=== PATIENT | male | born 1945 | race Caucasian/White ===

== ENCOUNTER 2016-10-28 23:51 | Outpatient (CLI) | payer MEDICARE, OTHER | END 2016-10-28 23:52 | disposition critical access hospital (66) | LOC: EMS 23:51 | PROVIDERS: ATTEND Surgery | DX: R20.0 Anesthesia of skin (principal) | CPT/HCPCS: A0425; A0429 ==

== ENCOUNTER 2016-10-29 00:06 | Emergency (ER) | payer MEDICARE, OTHER ==
[2016-10-29 00:33] LABS: BASOPHILS % (AUTO) 0.3 %; EOSINOPHILS # (AUTO) 0.1 10^3/uL (0.0-0.7); EOSINOPHILS % (AUTO) 2.5 %; HCT - HEMATOCRIT 40.5 % (42.0-52.0); HGB - HEMOGLOBIN 14.1 g/dL (14.0-18.0); LYMPHOCYTES # (AUTO) 2.1 10^3/uL (1.5-3.5); LYMPHOCYTES % (AUTO) 34.4 %; MEAN CORPUSCULAR HEMOGLOBIN 29.9 pg (27.0-31.0); MEAN CORPUSCULAR HGB CONC 34.9 g/dL (32.0-36.0); MEAN CORPUSCULAR VOLUME 85.5 fL (80.0-94.0); MEAN PLATELET VOLUME 8.4 fL (7.4-11.4); MONOCYTES # (AUTO) 0.8 10^3/uL (0.0-1.0); MONOCYTES % (AUTO) 13.7 %; NEUTROPHILS % (AUTO) 49.1 %; RED BLOOD COUNT 4.74 10^6/uL (4.70-6.10); RED CELL DISTRIBUTION WIDTH 14.1 % (12.0-15.0)
[2016-10-29 01:11] LABS: INR 1.1 (0.8-1.2)
[2016-10-29 01:17] LABS: ALBUMIN/GLOBULIN RATIO 1.4 (1.0-2.2); BILIRUBIN,TOTAL 0.8 mg/dL (0.2-1.0); CALCIUM 8.7 mg/dL (8.5-10.3); CREATININE 1.2 mg/dL (0.6-1.2); POTASSIUM 3.7 mmol/L (3.5-5.0)
[2016-10-29 01:18] LABS: PARTIAL THROMBOPLASTIN TIME 31.1 secs (24.9-33.3)
--- NOTE | 2016-10-29 01:28 | CT Preliminary Report ---
Exam: CT Head W/O IMPRESSION: 1. Expected evolution of the left temporoparietal infarct compared to recent exams. 2. No hemorrhagic transformation of the infarct. 3. No evidence of new interval infarct. [facility] SITE ID: [id number]
--- NOTE | 2016-10-29 01:30 | CT Report ---
EXAM: CT HEAD EXAM DATE: 10/29/2016 12:56 AM. CLINICAL HISTORY: Right facial numbness. COMPARISON: Brain CT and CT angiogram of the head and neck from 10/26/2016 and brain MRI from 017. TECHNIQUE: Multiaxial CT images were obtained from the foramen magnum to the vertex. IV contrast: Non e. Reformats: Coronal. In accordance with CT protocol optimization, one or more of the following dose reduction techniques w ere utilized for this exam: automated exposure control, adjustment of mA and/or KV based on patient s ize, or use of iterative reconstructive technique. FINDINGS: Parenchyma: There is more conspicuous decreased hoffmann-white matter differentiation involving the left temporoparietal region, consistent with evolving posterior left MCA territory infarct. No new acute l oss of hoffmann-white matter differentiation is seen. No hemorrhagic transformation of the infarct is miguel ntified. Extraaxial Spaces: Normal for age. No subdural or epidural collections identified. Ventricles: The ventricles and cortical sulci are moderately enlarged, consistent with age-related ti ssue loss. Sinuses: Imaged paranasal sinuses, orbits, and mastoids show no significant abnormality. Bones: No evidence of fracture or calvarial defect. Other: Mild patchy chronic microangiopathic white matter changes are suggested. Mild intracranial ath erosclerosis is noted. IMPRESSION: 1. Expected evolution of the left temporoparietal infarct compared to recent exams. 2. No hemorrhagic transformation of the infarct. 3. No evidence of new interval infarct. [facility] Referring Provider Line: [phone] SITE ID: [id number]
[2016-10-29] MEDS ORDERED: DICYCLOMINE 10 MG CAPSULE PO STA (01:39)
--- NOTE | 2016-10-29 01:40 | ED Physician Documentation ---
PD HPI FOCAL NEURO - Stated complaint Stated Complaint: Mouth & Foot Numbness - Chief complaint Chief Complaint: Neuro - History obtained from History obtained from: Patient, Family - History of Present Illness Timing - onset: How many hours ago (4), Today Timing - details: Gradual onset, Still present Severity of deficit: Mild Numbness: Face Associated symptoms: No: Headache, Nausea / vomiting, Seizure, Syncope, Fall Contributing factors: positive: Anticoagulated. negative: Atrial fibrillation Baseline status: positive: A&OX3, ambulatory, indep Similar symptoms before: Work up / diagnostics, Treatment Recently seen: Emergency Dept - Additional information Additional information: Patient is a 71 year old male who had a stroke three days prior who is presenting to the emergency department for right sided lip and tongue numbness that started at rest about 4 hours ago. Review of Systems Constitutional: denies: Fever, Chills Eyes: denies: Loss of vision, Decreased vision Ears: denies: Ear pain Nose: denies: Rhinorrhea / runny nose, Congestion Respiratory: denies: Cough GI: denies: Abdominal Pain, Nausea, Vomiting Skin: denies: Rash, Lesions Musculoskeletal: denies: Neck pain, Back pain, Extremity pain Neurologic: reports: Numbness. denies: Generalized weakness, Focal weakness, Syncope, Altered mental status Psychiatric: denies: Depressed Immunocompromised: denies: Immunocompromised PD PAST MEDICAL HISTORY - Past Medical History Past Medical History: Yes Cardiovascular: Hypertension, High cholesterol Neuro: CVA - Past Surgical History Past Surgical History: Yes - Present Medications Home Medications: Ambulatory Orders Medication Instructions Recorded Confirmed Cephalexin [Keflex] 500 mg PO Q6H 7 Days 02/16/15 Lisinopril [Prinivil] 5 mg PO DAILY 02/16/15 02/16/15 Pravastatin Sodium 40 mg PO DAILY 02/16/15 02/16/15 Sulfamethoxazole/Trimethoprim 1 each PO BID #10 tablet 02/18/15 [Bactrim Ds Tablet] - Allergies Allergies/Adverse Reactions: Allergies Allergy/AdvReac Type Severity Reaction Status Date / Time duloxetine HCl * Allergy Unknown Verified 02/16/15 17:57 [From Cymbalta] - Social History Does the pt smoke?: No Smoking Status: Never smoker Does the pt drink ETOH?: No Does the pt have substance abuse?: No - Immunizations Immunizations are current?: No Immunizations: TDAP >10years/unknown - POLST Patient has POLST: No PD ED PE NORMAL - Vitals Vital signs reviewed: Yes - General General: Alert and oriented X 3, No acute distress - HEENT HEENT: Atraumatic, PERRL - Neck Neck: Supple, no meningeal sign, No JVD - Cardiac Cardiac: RRR, No murmur - Respiratory Respiratory: No respiratory distress, Clear bilaterally - Abdomen Abdomen: Soft, Non tender, Non distended - Derm Derm: Normal color, Warm and dry - Extremities Extremities: No deformity, No tenderness to palpate, No edema - Neuro Neuro: Alert and oriented X 3, No motor deficit, Normal speech - Psych Psych: Normal mood, Normal affect PD ED PE EXPANDED - Neuro Neuro: Alert and Oriented X 3, Normal motor, Normal Speech, Abnormal sensation ( decreased sensation right side of face), PERRL. No: Dyscongugate gaze, Aphasia , Dysarthria NIHSS - Level of Consciousness Level of consciousness: (0) Alert, Keenly responsive LOC Questions: (0) Answers both Q's correct - Gaze Best Gaze: (0) Normal - Visual Visual: (0) No loss - Facial Palsy Facial Palsy: (0) Normal, symmetrical movement - Motor Arms (both separate) Motor Arm (right): (0) No drift Motor Arm (left): (0) No drift - Motor Legs (both separate) Motor Leg (right): (0) No drift Motor Leg (left): (0) No drift - Limb Ataxia Limb Ataxia: (0) Absent - Sensory Sensory: (1) Kpai-xy-prectdep loss - Best Language Best Language: (0) No aphasia - Dysarthria Dysarthria: (0) Normal - Extinction and Inattention (formally neg Extinction and inattention: (0) No abnormality Results - Vitals Vitals: Vital Signs - 24 hr 10/29/16 10/29/16 10/29/16 00:08 01:09 01:45 Temperature 36.7 C Heart Rate 60 63 69 Respiratory 16 16 16 Rate Blood Pressure 207/91 H 184/90 H 155/88 H O2 Saturation 100 97 100 Oxygen O2 Source Room air - EKG (time done) 0103 Rate: Rate (enter#) (55) Rhythm: NSR [place]: LAD Intervals: Normal [place] QRS: Normal Ischemia: Normal ST segments, Q waves Other comments: Other comments (occasional pac) Compare to prior EKG: Old EKG unavailable - Labs Labs: Laboratory Tests 10/29/16 10/29/16 10/29/16 00:22 01:00 01:00 WBC 6.0 RBC 4.74 Hgb 14.1 Hct 40.5 L MCV 85.5 MCH 29.9 MCHC 34.9 RDW 14.1 Plt Count 183 MPV 8.4 Neut # 3.0 Lymph # 2.1 [place] # 0.8 Eos # 0.1 Baso # 0.0 Absolute Nucleated RBC 0.00 Nucleated RBCs 0.0 PT 13.0 H INR 1.1 APTT 31.1 Sodium 137 Potassium 3.7 Chloride 103 Carbon Dioxide 25 Anion Gap 9.0 BUN 20 Creatinine 1.2 Estimated GFR (MDRD) 59 L Glucose 91 Calcium 8.7 Total Bilirubin 0.8 AST 20 ALT 15 Alkaline Phosphatase 74 Total Protein 7.0 Albumin 4.1 Globulin 2.9 Albumin/Globulin Ratio 1.4 Lipase 25 - Rads (name of study) ct head Radiology: Final report received (involutional changes of prior stroke, no acute bleed) PD MEDICAL DECISION MAKING - ED course Complexity details: reviewed old records, reviewed results, re-evaluated patient , considered differential, d/w patient, d/w family ED course: Patient was seen and examined at bedside. patient had minimal deficit and was not a candidate for tpa due to the previous stroke three days prior and the low nihss. Patient was sent for imaging. when patient returned labs were drawn and ekg was performed. Patient showed no acute, unexpected changes. Patient was already on the appropriate therapy. Patient required no further work up at this time and had a follow up appointment tomorrow. Patient was stable for discharge with outpatient follow up. Departure - Departure Disposition: Home, Self Care Clinical Impression: Cerebrovascular accident (CVA) Condition: Good Instructions: ED Stroke Completed Follow-Up: Roly Dickson MD [Primary Care Provider] - Tomorrow Comments: Your symptoms are likely secondary to your stroke. A relatively large area of the left side of your brain was affected so it is not uncommon to have residual symptoms or repeat strokes. You are already on the appropriate therapy. You should follow up with your doctor tomorrow. You may return to the emergency department at any time for new, worsening or uncontrollable symptoms. Discharge Date/Time: 10/29/16 01:45
[2016-10-29 02:05] VITALS: BP 155/88
== END 2016-10-29 01:45 | disposition home or self-care (01) ==
LOC: EDUNIT# → ED 00:06 → SUPCPDRO 00:06 → ED 01:45
DX: I63.9 Cerebral infarction, unspecified (principal); R20.0 Anesthesia of skin; I10 Essential (primary) hypertension; E78.00 Pure hypercholesterolemia, unspecified
CPT/HCPCS: 36415; 70450; 80053; 83690; 85025; 85610; 85730; 93005; 93010; 99284

== ENCOUNTER 2016-11-06 14:43 | Outpatient (CLI) | payer MEDICARE, OTHER | END 2016-11-06 14:44 | disposition short-term general hospital (02) | LOC: EMS 14:43 | PROVIDERS: ATTEND Surgery | DX: R41.82 Altered mental status, unspecified (principal) | CPT/HCPCS: A0425; A0429; A0888 ==